=== PATIENT | male | born 1970 | race Caucasian/White ===

== ENCOUNTER 2016-12-10 11:34 | Day surgery (SDC) | payer OTHER ==
[~2016-12-10] VITALS: Ht 180.3 cm; Wt 60.3 kg
[~2016-12-10 11:34] MED LIST: BACLOFEN10 MG PO; EFFEXOR XR37.5 MG PO; OXYCODONE HCL10 MG PO
[2016-12-10 12:16] VITALS: BP 152/95; BP 162/106
[2016-12-10 13:44] LABS: ANION GAP 8 MEQ/L (2-14); CHLORIDE 105 MEQ/L (99-109); GFR ESTIMATE (CALCULATED) > 59 mL/min/; GLUCOSE 91 mg/dL (70-99); POTASSIUM 3.8 MEQ/L (3.7-5.4); SAMPLE HEMOLYSIS CHECK 0; SAMPLE ICTERIC CHECK 0; SAMPLE LIPEMIA CHECK 0; SODIUM 137 MEQ/L (136-147); UREA NITROGEN (BUN) 15 mg/dL (9-23)
[2016-12-10 17:48] VITALS: BP 154/94
[2016-12-10 18:30] VITALS: BP 145/87
== END 2016-12-10 18:52 | disposition home or self-care (01) ==
LOC: SDC 11:34
PROVIDERS: Neurological Surgery
PROC: 0PU30KZ Supplement Cervical Vertebra with Nonautologous Tissue Substitute, Open Approach (ICD-10-PCS; principal; 2016-12-10)
PROC: 0RG10J0 Fusion of Cervical Vertebral Joint with Synthetic Substitute, Anterior Approach, Anterior Column, Open Approach (ICD-10-PCS; principal; 2016-12-10)
PROC: 0PH304Z Insertion of Internal Fixation Device into Cervical Vertebra, Open Approach (ICD-10-PCS; principal; 2016-12-10)
DX: M50.223 Other cervical disc displacement at C6-C7 level (principal); M54.12 Radiculopathy, cervical region; F41.8 Other specified anxiety disorders; R03.0 Elevated blood-pressure reading, without diagnosis of hypertension
CPT/HCPCS: 72040; 76000; 80048; C1713; J0330; J0690; J1170; J2250; J2405; J3010